=== PATIENT | female | born 1975 | race Caucasian/White ===

== ENCOUNTER → 2016-12-20 | Outpatient (CLI) | payer BC ==
[2016-12-20 14:02] LABS: Erythrocyte Sedimentation Rate 18 mm/hr (0-20)
[2016-12-20 19:12] LABS: Clam IgE <0.10 kU/L; Egg White IgE <0.10 kU/L; Peanut IgE <0.10 kU/L; Scallop IgE <0.10 kU/L; Soybean IgE <0.10 kU/L
== END | disposition home or self-care (01) ==
LOC: LABWHC1 11:27
PROVIDERS: ATTEND Internal Medicine Critical Care Medicine
DX: J45.901 Unspecified asthma with (acute) exacerbation (principal); D86.9 Sarcoidosis, unspecified
CPT/HCPCS: 36415; 82164; 82310; 82785; 85008; 85652; 86003

== ENCOUNTER → 2016-12-21 | Outpatient (CLI) | payer BC | END | disposition home or self-care (01) | LOC: LABPRL 09:30 | PROVIDERS: ATTEND Internal Medicine Critical Care Medicine | DX: D86.9 Sarcoidosis, unspecified (principal) | CPT/HCPCS: 81050; 82340 ==

== ENCOUNTER → 2016-12-29 | Outpatient (CLI) | payer BC ==
--- NOTE | 2016-12-29 16:45 | CT ---
EXAMINATION TYPE: CT chest w con DATE OF EXAM: 12/29/2016 4:40 PM COMPARISON: NONE HISTORY: Pt states of SOB and congestion x3 months. CT DLP: 323.8 mGycm Automated exposure control for dose reduction was used. CONTRAST: CT scan of the chest is performed with IV Contrast, patient injected with 90 mL of Omnipaque 300. FINDINGS: LUNGS: The lungs are grossly clear, there is no concerning parenchymal mass or nodule identified. M ild dependent basilar atelectasis. There is no pleural effusion or pneumothorax seen. The tracheobro nchial tree is patent. MEDIASTINUM: There are no greater than 1 cm hilar or mediastinal lymph nodes. No pericardial effusi on is seen. Thoracic aorta is of normal caliber. The heart is not enlarged. UPPER ABDOMEN: Cholecystectomy clips are in place. OTHER: No additional significant abnormality is seen. IMPRESSION: No significant abnormality is present.
== END | disposition home or self-care (01) ==
LOC: RADCTMAIN 15:59
PROVIDERS: ATTEND Internal Medicine Critical Care Medicine
DX: R05 Cough (principal)
CPT/HCPCS: 71260; Q9967

== ENCOUNTER → 2018-09-10 | Outpatient (CLI) | payer BC ==
--- NOTE | 2018-09-11 14:03 | US ---
EXAMINATION TYPE: US thyroid st tissue head/neck DATE OF EXAM: 09/10/2018 COMPARISON: NONE CLINICAL HISTORY: E04.9 Goiter diffuse. Goiter, pt states thyroid feels enlarged, on thyroid meds x 2 0+ yrs. GLAND SIZE: Right Lobe: 4.3 x 1.3 x 1.8 cm Overall Parenchyma: Grossly heterogeneous Left Lobe: 4.9 x 1.2 x 1.7 cm Overall Parenchyma: Grossly heterogeneous Isthmus Thickness: 0.4 cm Bilateral neck scanned, no evidence of lymphadenopathy. Bilateral thyroid grossly heterogeneous with cobblestone appearance. IMPRESSION: Correlate for thyroiditis.
== END | disposition home or self-care (01) ==
LOC: RADUSWWP 16:13
PROVIDERS: ATTEND Internal Medicine Endocrinology, Diabetes & Metabolism
DX: E04.9 Nontoxic goiter, unspecified (principal); E03.9 Hypothyroidism, unspecified
CPT/HCPCS: 76536; 84443

== ENCOUNTER 2019-01-24 13:03 | Emergency (ER) | payer BC ==
[2019-01-24] MEDS ORDERED: KETOROLAC 30 MG/ML 1 ML VIAL IVP STA (14:02)
[2019-01-24] MEDS ORDERED: SODIUM CHLORIDE 0.9% 500 ML 500 ML IV STA (14:02)
[2019-01-24] MEDS ORDERED: SODIUM CHLORIDE 0.9% 1,000 ML IV STA (14:02)
[2019-01-24] MEDS ORDERED: METOCLOPRAMIDE 5 MG/ML 2 ML VIAL IVP STA (14:02)
[2019-01-24] MEDS ORDERED: LORazepam 2 MG/ML INJ IV STA (14:03)
[2019-01-24] MEDS ORDERED: MECLIZINE 12.5 MG TAB PO STA (14:03)
[2019-01-24] MEDS ORDERED: DEXAMETHASONE SOD PHOSPHATE 10 MG/ML 1 ML VIAL IV STA (14:03)
--- NOTE | 2019-01-24 14:10 | ED ---
Headache HPI - General Chief Complaint: Headache Stated Complaint: headache, dizziness Time Seen by Provider: 01/24/19 13:57 Mode of arrival: ambulatory Limitations: no limitations - History of Present Illness Initial Comments: This 43-year-old white female presents with a complaint of some dizziness. She states that it came on this morning. It is associated with a significant spinning type sensation. This is worse with certain head movements and positions. She denies any prior history of vertigo. She also has had a slight left-sided headache. She does relate that she has seasonal allergies and this seems to affect her ears at times. She has had occasional upper respiratory infections this winter. She does relate that she has had significant problems with her sinuses. She will normally get an infection every winter. She has had previous sinus surgery done by Dr. Link in the past but this does not seem to alleviate her symptoms and will be following up with ENT again in the near future. No other complaints or modifying factors. No fevers or chills. - Related Data Home Medications Medication Instructions Recorded Confirmed Levothyroxine Sodium [Synthroid] 150 mcg PO DAILY 01/24/19 01/24/19 Montelukast [Singulair] 10 mg PO HS 01/24/19 01/24/19 Norethindrone-E.estradiol-Iron 1 tab PO HS 01/24/19 01/24/19 [Loestrin Fe 1-20 Tablet] levETIRAcetam [Keppra] 500 mg PO BID 01/24/19 01/24/19 Previous Rx's Medication Instructions Recorded Amoxic-Pot Clav 875-125Mg 1 each PO Q12HR #20 tablet 01/24/19 [Augmentin Xr 875-125] Butalb/Acetaminophen/Caffeine 1 - 2 each PO Q4H PRN #20 tab 01/24/19 [Fioricet] Fluticasone Nasal Doerun [Flonase 2 spr EA NOSTRIL DAILY #1 bottle 01/24/19 Nasal Doerun] Meclizine [Antivert] 25 mg PO TID PRN #20 tab 01/24/19 Ondansetron Odt [Zofran ODT] 8 mg PO Q8HR PRN #12 tab 01/24/19 Allergies Allergy/AdvReac Type Severity Reaction Status Date / Time No Known Allergies Allergy Verified 01/24/19 13:36 Review of Systems ROS Statement: Those systems with pertinent positive or pertinent negative responses have been documented in the HPI. ROS Other: All systems not noted in ROS Statement are negative. Past Medical History Past Medical History: No Reported History History of Any Multi-Drug Resistant Organisms: None Reported Past Surgical History: Cholecystectomy Additional Past Surgical History / Comment(s): sinus surgery, ablasion Past Psychological History: No Psychological Hx Reported Smoking Status: Never smoker Past Alcohol Use History: Occasional Past Drug Use History: None Reported General Exam - General Exam Comments Initial Comments: GENERAL: The patient is well nourished and well hydrated. VITAL SIGNS: Heart rate, blood pressure, respiratory rate reviewed as recorded in nurse's notes. EYES: Pupils are round and reactive. Extraocular movements are intact. No conjunctival / lid redness or swelling. ENT: There is slight fluid noted behind both ears worse on the right. Airway is patent. Throat is clear. NECK: Nontender. No swelling or evidence of injury. No subcutaneous emphysema. Trachea is midline. No thyroid mass. HEART: Regular rate and rhythm. Good peripheral pulses. LUNGS/CHEST: Breath sounds clear and equal bilaterally. No rales, rhonchi, or wheezes. No ecchymosis, subcutaneous emphysema, or tenderness. ABDOMEN: Abdomen soft without tenderness. No palpable masses or organomegaly. No peritoneal signs. No abdominal wall swelling or ecchymosis. EXTREMITIES: No extremity tenderness. Normal muscle tone and function. No thoracolumbar tenderness. NEUROLOGIC: Sensation is grossly intact. Cranial nerve exam reveals face is symmetrical, tongue is midline, speech is clear. SKIN: No abrasions or ecchymosis is noted. No induration or masses noted. PSYCHIATRIC: Alert and oriented. Appropriate behavior and judgment. Limitations: no limitations Course Vital Signs 01/24/19 13:06 Temperature 98.3 F Pulse Rate 61 Respiratory 18 Rate Blood Pressure 135/96 O2 Sat by Pulse 96 Oximetry Medical Decision Making - Medical Decision Making The patient is seen and examined. All diagnostics are reviewed. She does receive an IV with some fluid hydration. She is given Antivert orally. She also receives Decadron, Ativan, Reglan, and Toradol intravenously. She is feeling improved on recheck. She states that she was nauseated and vomited once prior to receiving the medications. The headache has improved as well. The patient had a computed tomography scan of her brain which does not show any acute intracranial abnormalities but it does show significant pansinusitis. It is felt as though her headache is related to a sinus cephalgia. The possibility of a slight migrainous early possible as well. She certainly appears to have a sinusitis will be treated for this. She likely does have a viral labyrinthitis or vestibular neuronitis. It is felt as though she benefit from follow-up with ENT as well. She'll be placed on medications and discharged home but she is also given return parameters. Disposition Clinical Impression: Vertigo, Cephalgia, Sinusitis Disposition: HOME SELF-CARE Condition: Good Instructions (If sedation given, give patient instructions): Sinusitis (ED), Acute Headache (ED), Vertigo (ED) Additional Instructions: UL's may benefit from taking Mucinex DM or other similar medication for congestion. Prescriptions: Meclizine [Antivert] 25 mg PO TID PRN #20 tab PRN Reason: Vertigo Amoxic-Pot Clav 875-125Mg [Augmentin Xr 875-125] 1 each PO Q12HR #20 tablet Butalb/Acetaminophen/Caffeine [Fioricet] 1 - 2 each PO Q4H PRN #20 tab PRN Reason: Headache Fluticasone Nasal Doerun [Flonase Nasal Doerun] 2 spr EA NOSTRIL DAILY #1 bottle Ondansetron Odt [Zofran ODT] 8 mg PO Q8HR PRN #12 tab PRN Reason: Nausea And Vomiting Is patient prescribed a controlled substance at d/c from ED?: No Referrals: None,Stated [Primary Care Provider] - 1-2 days Pieter Mann DO [Doctor of Osteopathic Medicine] - As Soon As Possible Time of Disposition: 15:36
--- NOTE | 2019-01-24 15:02 | CT ---
EXAMINATION TYPE: CT brain wo con DATE OF EXAM: 01/24/2019 COMPARISON: NONE HISTORY: Headache, dizziness CT DLP: 1070.4 mGycm. Automated Exposure Control for Dose Reduction was Utilized. TECHNIQUE: CT scan of the head is performed without contrast. FINDINGS: There is no acute intracranial hemorrhage, mass effect, or midline shift identified. The ventricles and sulci are within normal limits in size. No suspicious extra-axial fluid collection. The globes are intact. There is moderate mucosal thickening within the right maxillary sinus extendin g into the ethmoid sinuses and right frontal sinus. The left maxillary sinus and sphenoid sinuses are well aerated as are the mastoid air cells. There is chronic mucoperiosteal thickening of the right m axillary sinus with postoperative change. IMPRESSION: 1. No acute intracranial hemorrhage, mass effect, or midline shift is seen. 2. Postsurgical change of the right maxillary sinus however there appears to be acute on chronic righ t-sided moderate sinusitis involving the maxillary, ethmoid, and frontal sinuses.
[2019-01-24 16:19] VITALS: BP 127/85; PULSE 87; RESP 16; TEMP 97.6
== END 2019-01-24 16:20 | disposition home or self-care (01) ==
LOC: EC 13:03
DX: J32.4 Chronic pansinusitis (principal); R42 Dizziness and giddiness; R11.2 Nausea with vomiting, unspecified; Z79.890 Hormone replacement therapy; Z79.899 Other long term (current) drug therapy
CPT/HCPCS: 70450; 99284; 96374; 96375 ×3; 96361 ×2; J2060; J1100; J2765; J1885

== ENCOUNTER → 2021-04-26 | Outpatient (CLI) | payer BC | END | disposition home or self-care (01) | LOC: LABWHC1 10:30 | PROVIDERS: ATTEND Internal Medicine Critical Care Medicine | DX: J45.998 Other asthma (principal) | CPT/HCPCS: 36415; 82785; 85008 ==